=== PATIENT | male | born 1995 | race African-American/Black ===

== ENCOUNTER 2017-11-25 17:17 | Inpatient (IN) | payer BC, OTHER ==
[~2017-11-25] VITALS: Ht 180.3 cm; Wt 78.0 kg
[2017-11-25] MEDS ORDERED: CLONIDINE HCL 0.1 MG TABLET PO PRN (21:45)
[2017-11-25] MEDS ORDERED: NICOTINE 14 MG/24HR PATCH TD PRN (21:45)
[2017-11-25] MEDS ORDERED: MAG HYDROX/AL HYDROX/SIMETH 30 ML LIQUID UDC PO PRN (21:45)
[2017-11-25] MEDS ORDERED: MIRALAX 17 GM POWD.PACK PO PRN (21:45)
[2017-11-25] MEDS ORDERED: DICYCLOMINE HCL 20 MG TABLET PO PRN (21:45)
[2017-11-25] MEDS ORDERED: diphenhydrAMINE 50 MG CAPSULE PO PRN (21:45)
[2017-11-25] MEDS ORDERED: ONDANSETRON ODT 4 MG TAB.RAPDIS SL PRN (21:45)
[2017-11-25] MEDS ORDERED: ACETAMINOPHEN 325 MG TABLET PO PRN (21:45)
[2017-11-25] MEDS ORDERED: TRAZODONE 50 MG TABLET PO PRN (21:45)
[2017-11-25] MEDS ORDERED: NICOTINE POLACRILEX 4 MG GUM-PK OF TEN BC PRN (21:45)
[2017-11-25] MEDS ORDERED: LOPERAMIDE HCL 2 MG CAPSULE PO PRN ×2 (21:45)
[2017-11-25] MEDS ORDERED: DOCUSATE SODIUM 250 MG CAPSULE PO PRN (21:45)
[2017-11-25] MEDS ORDERED: HYDROXYZINE PAMOATE 25 MG CAPSULE PO PRN (21:45)
[2017-11-25] MEDS ORDERED: LORAZEPAM 1 MG TABLET PO PRN (21:45)
[2017-11-25] MEDS ORDERED: METHOCARBAMOL 750 MG TABLET PO PRN (21:45)
[2017-11-25] MEDS ORDERED: BUPRENORPHINE HCL 2 MG TAB.SUBL SL PRN (21:45)
[2017-11-25] MEDS ORDERED: IBUPROFEN 600 MG TABLET PO PRN (21:45)
[2017-11-25] MEDS ORDERED: ONDANSETRON 4 MG/2 ML VIAL IM PRN (21:45)
[2017-11-25] MEDS ORDERED: MAGNESIUM HYDROXIDE 30 ML LIQUID UDC PO PRN (21:45)
[2017-11-25] MEDS ORDERED: TRAZ-147 PO (22:55)
[2017-11-25] MEDS ORDERED: RIVA10TA PO (22:55)
[2017-11-25 22:59] LABS: *AMPHETAMINE, URINE POSITIVE (NEGATIVE); *BARBITURATE, URINE NEGATIVE (NEGATIVE); *CANNABINOID, URINE NEGATIVE (NEGATIVE); *COCCAINE, URINE NEGATIVE (NEGATIVE); *OPIATE, URINE POSITIVE (NEGATIVE); *PHENCYCLIDINE SCREEN,URINE NEGATIVE (NEGATIVE)
[2017-11-26] VITALS: BP 116/71
[2017-11-26] MEDS ORDERED: SULF1TAB3 PO (00:46)
[2017-11-26 04:00] VITALS: BP 111/68
[2017-11-26 08:26] VITALS: BP 100/69
[2017-11-26] MEDS ORDERED: TUBERCULIN,PURIF.PROT.DERIV. 5 TU/0.1 ML TEST ID ONE (09:00)
[2017-11-26] MEDS: BUPRENORPHINE HCL 2 MG TAB.SUBL SL SCH ×3 (09:00→21:22)
[2017-11-26 09:06] LABS: BASOPHILS % (AUTO) 0.9 % (0.0-2.0); EOSINOPHILS # (AUTO) 0.2 K/uL (0.0-0.7); EOSINOPHILS % (AUTO) 5.4 % (0.0-7.0); LYMPHOCYTES # (AUTO) 1.9 K/uL (20.0-40.0); LYMPHOCYTES % (AUTO) 50.6 % (20.5-51.5); MEAN CORPUSCULAR HEMOGLOBIN 29.9 uug (23.8-33.4); MEAN CORPUSCULAR HGB CONC 33 g/dL (32.5-36.3); MEAN CORPUSCULAR VOLUME 89.9 fL (73.0-96.2); MONOCYTES # (AUTO) 0.6 K/uL (2.0-10.0); MONOCYTES % (AUTO) 14.9 % (0.0-11.0); NEUTROPHILS # (AUTO) 1.1 K/uL (1.8-8.9); NEUTROPHILS % (AUTO) 28.2 % (38.5-71.5); PLATELET COUNT (AUTO) 273 K/uL (152-348); RED BLOOD CELL COUNT(AUTO) 4.35 MIL/uL (4.06-5.63); WHITE BLOOD COUNT (AUTO) 3.8 K/uL (3.6-10.2)
[2017-11-26 09:24] LABS: ETHANOL < 3 MG/DL (0-0)
[2017-11-26 09:33] LABS: ALANINE AMINOTRANSFERASE 15 U/L (16-63); ALKALINE PHOSPHATASE 85 U/L (50-136); ASPARTATE AMINOTRANSFERASE 13 U/L (15-37); BILIRUBIN,TOTAL 0.2 mg/dL (0.2-1.0); CARBON DIOXIDE 27 mmol/L (21-32); CHLORIDE 107 mmol/L (98-107); CREATININE 1.2 mg/dL (0.6-1.3); GLUCOSE 97 mg/dL (74-106); MAGNESIUM 2.2 mg/dL (1.8-2.4); POTASSIUM 3.9 mmol/L (3.5-5.1); TOTAL PROTEIN, SERUM 6.5 g/dL (6.4-8.2); UREA NITROGEN, BLOOD 13 mg/dL (7-18)
[2017-11-26] MEDS ORDERED: TRAZODONE 100 MG TABLET PO PRN (11:30)
[2017-11-26 13:01] VITALS: BP 116/64
[2017-11-26] MEDS: RIVAROXABAN 10 MG TABLET PO SCH (17:14)
[2017-11-26 18:37] VITALS: BP 125/65
[2017-11-26 20:00] VITALS: BP 124/72
[2017-11-26] MEDS ORDERED: DICYCLOMINE HCL 20 MG TABLET PO SCH (21:00)
[2017-11-27] VITALS: BP 129/67
[2017-11-27 04:00] VITALS: BP 122/63
[2017-11-27 08:13] VITALS: BP 107/60
[2017-11-27] MEDS ORDERED: BUPRENORPHINE HCL 2 MG TAB.SUBL SL SCH (09:00)
[2017-11-27 12:00] VITALS: BP 133/77
[2017-11-27 13:07] LABS: HEPATITIS B SURFACE AG Negative (Negative)
[2017-11-27] MEDS: BUPRENORPHINE HCL 2 MG TAB.SUBL SL SCH ×2 (14:37→20:58)
[2017-11-27 16:00] VITALS: BP 129/69
[2017-11-27] MEDS: RIVAROXABAN 10 MG TABLET PO SCH (17:35)
[2017-11-27 20:16] VITALS: BP 110/70
[2017-11-27] MEDS ORDERED: INFLUENZA VACCINE 2017-2018 0.5 ML DISP.SYRIN IM ONE (21:00)
[2017-11-28] VITALS (11 sets, daily range): BP systolic 90–132; BP diastolic 54–70
[2017-11-28] MEDS: BUPRENORPHINE HCL 2 MG TAB.SUBL SL SCH ×3 (09:12→20:38)
[2017-11-28] MEDS ORDERED: INFLUENZA VACCINE 2017-2018 0.5 ML DISP.SYRIN IM ONE (10:00)
[2017-11-28] MEDS: RIVAROXABAN 10 MG TABLET PO SCH (17:01)
[2017-11-29 00:23] VITALS: BP 113/65
[2017-11-29 04:08] VITALS: BP 122/75
[2017-11-29 08:00] VITALS: BP 103/60
[2017-11-29] MEDS ORDERED: BUPRENORPHINE HCL 2 MG TAB.SUBL SL SCH (09:00)
[2017-11-29 12:00] VITALS: BP 131/68
[2017-11-29 16:00] VITALS: BP 131/65
[2017-11-29] MEDS: RIVAROXABAN 10 MG TABLET PO SCH (17:11)
[2017-11-29 20:00] VITALS: BP 140/83
[2017-11-29] MEDS ORDERED: RIVA10TA PO (20:55)
[2017-11-29] MEDS ORDERED: METH-406 PO (20:55)
[2017-11-29] MEDS ORDERED: IBUP-1955 PO (20:55)
[2017-11-29] MEDS ORDERED: DICY20TA28 PO (20:55)
[2017-11-29] MEDS ORDERED: HYDR-3895 PO (20:55)
[2017-11-30 08:29] VITALS: BP 119/73
== END 2017-11-30 09:25 | disposition other institution (70) | DRG 895 ==
LOC: SRC 21:30
PROVIDERS: ADMIT Internal Medicine; ATTEND Internal Medicine
PROC: HZ2ZZZZ Detoxification Services for Substance Abuse Treatment (ICD-10-PCS; principal; 2017-11-25)
PROC: HZ41ZZZ Group Counseling for Substance Abuse Treatment, Behavioral (ICD-10-PCS; 2017-11-27)
PROC: HZ31ZZZ Individual Counseling for Substance Abuse Treatment, Behavioral (ICD-10-PCS; 2017-11-28)
DX: F11.23 Opioid dependence with withdrawal (principal); D68.59 Other primary thrombophilia; F15.23 Other stimulant dependence with withdrawal; F17.210 Nicotine dependence, cigarettes, uncomplicated; Z80.9 Family history of malignant neoplasm, unspecified; Z81.1 Family history of alcohol abuse and dependence; Z83.3 Family history of diabetes mellitus; Z83.2 Family history of diseases of the blood and blood-forming organs and certain disorders involving the immune mechanism; Z86.718 Personal history of other venous thrombosis and embolism; Z79.01 Long term (current) use of anticoagulants
CPT/HCPCS: 36415; 70030-TC; 80307; 80324; 80361; 83735; 85025; 86592; 86705; 86803; 87340; 87806; G0480; Q0162